=== PATIENT | female | born 1990 | race Caucasian/White ===

== ENCOUNTER 2019-04-23 15:16 | Emergency (ER) | payer MEDICAID ==
[~2019-04-23] VITALS: Ht 162.6 cm; Wt 58.0 kg
[2019-04-23 16:20] LABS: URINE BILIRUBIN - DIPSTICK NEGATIVE (NEGATIVE); URINE BLOOD DIPSTICK NEGATIVE (NEGATIVE); URINE COLOR YELLOW; URINE GLUCOSE - DIPSTICK NEGATIVE (NEGATIVE); URINE KETONE NEGATIVE (NEGATIVE); URINE LEUK ESTERASE NEGATIVE (NEGATIVE); URINE NITRITE - DIPSTICK NEGATIVE (Negative); URINE PROTEIN - DIPSTICK NEGATIVE (NEG-TRACE); URINE SPECIFIC GRAVITY 1.025
[2019-04-23] MEDS ORDERED: BACTRIM DS1 TAB PO (17:39)
[2019-04-23] MEDS ORDERED: CEPHALEXIN500 M1 PO (17:39)
[2019-04-23] MEDS ORDERED: LORTAB 1010 MG PO (17:41)
[2019-04-23 17:50] VITALS: BP 110/55
== END 2019-04-23 17:50 | disposition home or self-care (01) ==
LOC: ED 15:16
PROVIDERS: Emergency Medicine
DX: L02.511 Cutaneous abscess of right hand (principal)